=== PATIENT | female | born 1975 | race Hispanic/Latino ===

== ENCOUNTER 2024-06-13 07:05 | Day surgery (SDC) | payer OTHER ==
[~2024-06-13] VITALS: Ht 167.6 cm; Wt 52.2 kg
[2024-06-13] VITALS (10 sets, daily range): BP systolic 93–103; BP diastolic 45–64; PULSE 57–69; RESP 14–17; TEMP 97.3–98.1
[~2024-06-13 07:05] MED LIST: CHOL100046 PO; KRIL1CAP40 PO; VITA1CAP85 PO
[2024-06-13] MEDS: 0.9%NACL 1000ML 1,000 ML IV ONE (08:38)
[2024-06-13] MEDS ORDERED: proPOFol 10 MG/ML 20ML VIAL IV ONE (10:25)
== END 2024-06-13 11:45 | disposition home or self-care (01) ==
LOC: ENDO 07:05 → DAH 07:05 → ENDO 11:45
PROVIDERS: ATTEND Internal Medicine Gastroenterology
DX: K59.01 Slow transit constipation (principal); K63.89 Other specified diseases of intestine; F41.9 Anxiety disorder, unspecified; F32.A Depression, unspecified; Z79.899 Other long term (current) drug therapy
CPT/HCPCS: 84703; 36415; 45380; J7030 ×2; J2704; A4620; A4215 ×2; A4223; A4657; A4222; A4221; A4663; A4606; J3490